=== PATIENT | male | born 1990 | race Caucasian/White ===

== ENCOUNTER 2017-09-07 10:29 | Emergency (ER) | payer BC ==
[~2017-09-07 10:29] MED LIST: Iopamidol 370 76% 100 ML VIAL ONE
[2017-09-07 11:01] LABS: #Basophils 0.1 thou/uL (0.0-0.2); #Eosinphils 0.2 thou/uL (0.0-0.7); #Lymphocytes 1.3 thou/uL (1.20-3.40); #Monocytes 0.9 thou/uL (0.11-0.59); #Neutrophils 3.7 thou/uL (1.40-6.50); %Eosinophils 3.8 % (0.0-10.0); %Monocytes 14.7 % (0.0-10.0); %Neutrophils 59.6 % (42.0-75.0); Mean Corpuscular HGB CONC 33.6 g/dL (32.0-36.0); Mean Corpuscular Hemoglobin 30.8 pg (27.0-31.0); Mean Corpuscular Volume 91.6 fl (80.0-94.0); Platelet Count 252 thou/uL (130-400); RBC Distribution Width 11.2 % (11.5-14.5); White Blood Cell (WBC) Count 6.2 thou/uL (4.8-10.8)
[2017-09-07 11:12] LABS: ALT (SGPT) 26 U/L (8-55); AST (SGOT) 27 U/L (5-34); Albumin 4.9 g/dL (3.5-5.0); Alkaline Phosphatase 81 U/L (40-150); Anion Gap 16 mmol/L (10-20); BUN (Urea Nitrogen) 6 mg/dL (8.9-20.6); Bilirubin, Total 0.7 mg/dL (0.2-1.2); Calc. Creatinine Clearance 0 mL/min (70-130); Calcium 10.1 mg/dL (7.8-10.44); Carbon Dioxide 25 mmol/L (22-29); Chloride 103 mmol/L (98-107); Estimated GFR-MDRD Greater than 90; Globulin 3.4 g/dL (2.4-3.5); Glucose 93 mg/dL (70-105); Potassium 4.3 mmol/L (3.5-5.1); Protein, Total 8.3 g/dL (6.0-8.3); Sodium 140 mmol/L (136-145)
--- NOTE | 2017-09-07 12:14 | CT ---
CT ABDOMEN AND PELVIS WITH IV CONTRAST: 09/07/2017 PROVIDED CLINICAL HISTORY: Abdominal pain. COMPARISON: 05/22/2013 FINDINGS: The visualized lung bases appear free of significant opacity. The solid abdominal organs demonstrate an unremarkable CT appearance, with the exception of small lef t renal cysts. There is a short segment of small bowel to small bowel intussusception involving the left mid abdomen . There is no bowel dilatation, inflammatory fat stranding, free fluid, or lymph node enlargement ap parent. The visualized portions of the appendix appear normal. The osseous structures demonstrate no concerning osteoblastic or osteolytic lesions. IMPRESSION: 1. Short segment of small bowel to small intussusception within the left mid abdomen, typically a se lf-limited finding. 2. Otherwise unremarkable CT of the abdomen and pelvis. POS: [facility]ERTA
== END 2017-09-07 11:56 | disposition home or self-care (01) ==
LOC: SCSER 10:29
DX: R19.7 Diarrhea, unspecified (principal)
CPT/HCPCS: 74177; 80053; 85025; 96360

== ENCOUNTER 2025-05-01 15:13 | Outpatient (CLI) | payer BC | END 2025-05-01 15:14 | disposition home or self-care (01) | LOC: SCSMRI 15:13 | PROVIDERS: ATTEND Family Medicine | DX: M50.222 Other cervical disc displacement at C5-C6 level (principal); R51.9 Headache, unspecified; M43.24 Fusion of spine, thoracic region; M47.812 Spondylosis without myelopathy or radiculopathy, cervical region; M48.02 Spinal stenosis, cervical region | CPT/HCPCS: 72141 ==